=== PATIENT | female | born 1990 ===

== ENCOUNTER → 2019-09-16 | Outpatient (CLI) | payer OTHER | LOC: LAB SHORT 10:00 → LAB 10:00 | DX: Z34.80 Encounter for supervision of other normal pregnancy, unspecified trimester (principal) | CPT/HCPCS: 87081; 87653 ==

== ENCOUNTER 2019-10-02 15:07 | Inpatient (IN) | payer OTHER ==
[~2019-10-02] VITALS: Ht 165.1 cm; Wt 89.5 kg
[2019-10-04] MEDS ORDERED: PRENATAL TABLE1 EAC2 PO (11:22)
[2019-10-04 11:23] LABS: BASOPHILS ABSOLUTE AUTO 0.06 K/mm3 (0.00-0.23); BASOPHILS PERCENT AUTO 1 % (0-2); EOSINOPHILS ABSOLUTE AUTO 0.06 K/mm3 (0.00-0.68); EOSINOPHILS PERCENT AUTO 1 % (0-6); Hematocrit 33.2 % (33.0-51.0); Hemoglobin 10.6 g/dL (11.5-16.0); IMMATURE GRAN ABSOLUTE AUTO 0.06 K/mm3 (0.00-0.10); IMMATURE GRAN PERCENT AUTO 1 % (0-1); LYMPHOCYTES ABSOLUTE AUTO 2.22 K/mm3 (0.84-5.20); LYMPHOCYTES PERCENT AUTO 19 % (21-46); MONOCYTES ABSOLUTE AUTO 0.77 K/mm3 (0.16-1.47); MONOCYTES PERCENT AUTO 7 % (4-13); Mean Corpuscular HGB 28.9 pg (26.0-34.0); Mean Corpuscular HGB Conc 31.9 g/dL (31.5-36.5); Mean Corpuscular Volume 91 fL (80-100); Mean Platelet Volume 11.7 fL (9.1-12.4); NEUTROPHILS ABSOLUTE AUTO 8.27 K/mm3 (1.96-9.15); NEUTROPHILS PERCENT AUTO 72 % (41-73); Platelet Count 258 K/mm3 (150-400); RDW Coefficient Variation 13.2 % (11.7-14.2); RDW Standard Deviation 43.9 fL (35.1-46.3); Red Blood Cell Count 3.67 M/mm3 (3.80-5.20); White Blood Cell Count 11.44 K/mm3 (4.00-11.30)
[2019-10-05 08:08] LABS: PCO2 Cord - Arterial 63.8 mmHg (40-50); pH Cord - Arterial 7.27 (7.28-7.35)
[2019-10-05 08:10] LABS: PCO2 Cord - Venous 48.4 mmHg (40-50); PO2 Cord - Venous 25.7 mmHg (28-32); pH Umbilical Cord - Venous 7.34 (7.26-7.35)
--- NOTE | 2019-10-05 08:15 | NUR ---
10/05/19 0815 Marissa Coppola DELIVERY OF VIABLE MALE AT 0757 WEIGHING 3800 GRAMS. HEAD 14" CHEST 14" LENGTH 21. APGARS 9/9. UMBILICAL CORD GASES SENT WITH RT AND CORD BLOOD COLLECTED AND GIVEN TO MAGUI HALL. ADDIS WEIGHED 685 GRAMS
--- NOTE | 2019-10-05 11:01 | NUR ---
Per family request, I performed a blessing for Baby Silas and his parents.
--- NOTE | 2019-10-05 11:27 | NUR ---
PATIENT GAVE PERMISSION FOR THIS STUDENT NURSE TO WITH PATIENT.
--- NOTE | 2019-10-05 18:29 | NUR ---
ZENIA CARE DONE. PT MOVING WELL IN BED. SMILING, HAPPY AND FOB AT BEDSIDE.
--- NOTE | 2019-10-05 18:31 | NUR ---
REPORT TO RICKI FOWLER
--- NOTE | 2019-10-05 22:50 | NUR ---
PATERNITY PAPERS PATERNITY PAPERS FILLED OUT BY PATIENT. PATERNITY PAPERS SIGNED BY BOTH PARTIES AND WITNESSED BY RN.
[2019-10-06 05:49] LABS: BASOPHILS ABSOLUTE AUTO 0.05 K/mm3 (0.00-0.23); BASOPHILS PERCENT AUTO 0 % (0-2); EOSINOPHILS PERCENT AUTO 1 % (0-6); Hematocrit 27.5 % (33.0-51.0); IMMATURE GRAN ABSOLUTE AUTO 0.09 K/mm3 (0.00-0.10); IMMATURE GRAN PERCENT AUTO 1 % (0-1); LYMPHOCYTES ABSOLUTE AUTO 1.96 K/mm3 (0.84-5.20); LYMPHOCYTES PERCENT AUTO 13 % (21-46); MONOCYTES ABSOLUTE AUTO 0.63 K/mm3 (0.16-1.47); MONOCYTES PERCENT AUTO 4 % (4-13); Mean Corpuscular HGB 29.5 pg (26.0-34.0); Mean Corpuscular HGB Conc 32.7 g/dL (31.5-36.5); Mean Corpuscular Volume 90 fL (80-100); Mean Platelet Volume 11.7 fL (9.1-12.4); NEUTROPHILS ABSOLUTE AUTO 12.07 K/mm3 (1.96-9.15); NEUTROPHILS PERCENT AUTO 81 % (41-73); Platelet Count 213 K/mm3 (150-400); RDW Coefficient Variation 13.1 % (11.7-14.2); Red Blood Cell Count 3.05 M/mm3 (3.80-5.20)
--- NOTE | 2019-10-06 06:27 | NUR ---
PATIENT UP TO THE SHOWER. TOLERATED WELL. VOIDED. DRESSING REMOVED. STERI STRIPS C/D/I
[2019-10-07] MEDS ORDERED: Percocet 5-3251 EACH PO (09:13)
[2019-10-07] MEDS ORDERED: IBUP800 PO (09:14)
--- NOTE | 2019-10-07 09:15 | NUR ---
assumed care of mom and baby at 0915, they are wanting togo home as soon as they can
--- NOTE | 2019-10-07 09:45 | NUR ---
pt reports already had flu vaccine
== END 2019-10-07 10:00 | disposition home or self-care (01) | DRG 788 ==
LOC: BC 10-05 05:34 → EDUNIT# 10-05 07:30 → BC 10-05 07:30
PROVIDERS: ADMIT Obstetrics & Gynecology
PROC: 0DNU0ZZ Release Omentum, Open Approach (ICD-10-PCS; 2019-10-05)
PROC: 10D00Z1 Extraction of Products of Conception, Low, Open Approach (ICD-10-PCS; principal; 2019-10-05 07:30)
DX: O34.211 Maternal care for low transverse scar from previous cesarean delivery (principal); Z37.0 Single live birth; Z3A.39 39 weeks gestation of pregnancy; O99.334 Smoking (tobacco) complicating childbirth; F17.200 Nicotine dependence, unspecified, uncomplicated
CPT/HCPCS: 36415; 82803; 82947; 85025; 86850; 86900; 86901; J0690; J1885; J2210; J2370; J2405; J2590; J2765; J3010; J7120